=== PATIENT | female | born 1990 | race Caucasian/White ===

== ENCOUNTER 2023-04-09 20:25 | Emergency (ER) | payer BC, SELFPAY ==
[2023-04-09] MEDS ORDERED: Morphine 2 MG/ML VIAL ONE (21:00)
[2023-04-09] MEDS ORDERED: Morphine 4 MG/ML VIAL ONE (21:00)
[2023-04-09] MEDS ORDERED: Ketamine 50 MG/ML (10ML VIAL) ONE (21:39)
[2023-04-09] MEDS ORDERED: Ondansetron PF 4 MG/2 ML Vial ONE (23:13)
[2023-04-10] MEDS ORDERED: Prochlorperazine 10 MG/2 ML VIAL ONE (00:13)
== END 2023-04-10 00:30 | disposition home or self-care (01) ==
LOC: MADERS 20:25
DX: S52.572A Other intraarticular fracture of lower end of left radius, initial encounter for closed fracture (principal); S52.612A Displaced fracture of left ulna styloid process, initial encounter for closed fracture; E11.9 Type 2 diabetes mellitus without complications; X58.XXXA Exposure to other specified factors, initial encounter; Y93.43 Activity, gymnastics
CPT/HCPCS: 25605; 96374; 96375; 99152; 99153; J0780; J2270; J2272; J2405